=== PATIENT | female | born 1970 | race Caucasian/White ===

== ENCOUNTER → 2017-07-04 | Outpatient (CLI) | payer OTHER ==
[~2017-07-04] MED LIST: CLON0.5T3 PO; FLUO20CA35 PO; LTHSR/300 PO
--- NOTE | 2017-07-05 14:21 | MAMMOGRAPHY REPORT ---
BILATERAL DIGITAL SCREENING MAMMOGRAM TOMOSYNTHESIS WITH CAD: 07/04/2017 CLINICAL HISTORY: Routine screening. Patient has no complaints. TECHNIQUE: Breast tomosynthesis in addition to standard 2D mammography was performed. Current study was also evaluated with a Computer Aided Detection (CAD) system. COMPARISON: Comparison is made to exams dated: 02/19/2010 ultrasound, 02/19/2010 mammogram, and 997 mammogram - [facility]. BREAST COMPOSITION: The tissue of both breasts is heterogeneously dense, which may obscure small mas ses. FINDINGS: There are several groupings of amorphous microcalcifications in the left breast, mostly th roughout the upper outer quadrant, for which additional spot magnification views are recommended. Th ere is an 8 mm oval circumscribed mass in the right upper outer quadrant, and a possible 11 mm mass i n the retroareolar right breast, for which additional targeted ultrasound and possible additional grant mographic views are recommended. No other suspicious mass, architectural distortion or cluster of microcalcifications is seen bilatera lly. IMPRESSION: ACR BI-RADS CATEGORY 0: INCOMPLETE EVALUATION: NEED ADDITIONAL IMAGING EVALUATION The groupings of left breast macrocalcifications and right breast masses need additional imaging eval uation. The patient will be called to schedule an appointment. Approximately 10% of breast cancers are not detected with mammography. A negative mammographic report should not delay biopsy if a clinically suggestive mass is present. Blessing Aldridge M.D. ay/:07/04/2017 18:42:21 Production Machine Operator: Keeley Pinedo, [facility] letter sent: Addl Imaging 0 BI-RADS Code: ACR BI-RADS Category 0: Incomplete Evaluation: Need Additional Imaging Evaluation
== END | disposition home or self-care (01) ==
LOC: C.MAMM 12:40
PROVIDERS: ATTEND Physician Assistant
DX: Z12.31 Encounter for screening mammogram for malignant neoplasm of breast (principal); R92.0 Mammographic microcalcification found on diagnostic imaging of breast; N63 Unspecified lump in breast

== ENCOUNTER → 2017-07-19 | Outpatient (CLI) | payer OTHER ==
--- NOTE | 2017-07-19 15:30 | MAMMOGRAPHY REPORT ---
BILATERAL DIGITAL DIAGNOSTIC MAMMOGRAM TOMOSYNTHESIS AND TARGETED RIGHT ULTRASOUND: 07/19/2017 CLINICAL HISTORY: Callback from screening mammogram for right breast mass, right breast asymmetry, an d left breast calcifications. TECHNIQUE: Breast tomosynthesis in addition to standard 2D mammography was performed. Spot magnific ation left CC and ML and XCCL views and spot compression right CC and MLO 2-D and tomosynthesis image s were obtained. COMPARISON: Comparison is made to exams dated: 07/04/2017 mammogram, 02/19/2010 ultrasound, 02/19/2010 mammogram, and 12/16/1996 mammogram - [facility]. BREAST COMPOSITION: The tissue of both breasts is heterogeneously dense, which may obscure small mas ses. FINDINGS: The previously described asymmetry seen within the right subareolar breast on the cc view only effaces to a baseline appearance on the additional spot compression views, with the tissue in th is region appearing similar to the prior 2010 exam. No suspicious mass, architectural distortion, or other findings are seen in this region on the additional views. Spot magnification views of the left breast demonstrate very faint small clusters and loose groupings of amorphous calcifications in the left breast, in the left medial and superior breast and possibly the lateral breast on the cc view. The calcifications were likely present on the 2010 exam although it is difficult to make an accurate comparison due to differences in mammographic technique. Recomme nd follow-up diagnostic mammograms of the left breast in 6 months to confirm stability on spot magnif ication views. Targeted ultrasound was performed of the right 12:00, 6:00, and subareolar breast in the region of th e mammographic asymmetry seen on one view only. No suspicious masses or other suspicious sonographic abnormalities are evident. Incidentally noted in the right 6:00 periareolar breast is an oval anech oic benign simple cyst measuring 6 x 4 mm. Targeted ultrasound was performed of the right upper oute r quadrant in the region of a circumscribed mammographic mass seen on the screening mammogram. In th e right breast at 9:00, 4 cm from the nipple, there is an oval anechoic circumscribed 7 x 3 x 5 mm ma ss. This corresponds with the circumscribed mammographic mass and is consistent with a benign cyst. IMPRESSION: ACR-BI-RADS CATEGORY 3: PROBABLY BENIGN, TARGETED ULTRASOUND ACR-BI-RADS CATEGORY 3: PRO BABLY BENIGN 1. Faint amorphous loosely grouped/clustered calcifications in the left breast were likely present o n the 2010 exam and are probably benign. Recommend follow-up diagnostic tomosynthesis mammograms of the left breast in 6 months to confirm stability on spot magnification views. 2. Benign 7 mm cyst in the right breast at 9:00 on ultrasound, which corresponds with the new circum scribed mammographic mass. 3. Asymmetry in the right subareolar breast effaces on the additional views, without corresponding s onographic abnormality evident. Findings are benign and compatible with normal fibroglandular tissue . The patient has been verbally notified of the results. Approximately 10% of breast cancers are not detected with mammography. A negative mammographic report should not delay biopsy if a clinically suggestive mass is present. Raquel Babin M.D. ah/:07/19/2017 12:31:06 Leaf Sucker Operator: Keeley Pinedo, [facility] letter sent: Follow Up Recommended 3 BI-RADS Code: ACR-BI-RADS Category 3: Probably Benign Ultrasound BI-RADS: ACR-BI-RADS Category 3: Pr obably Benign
== END | disposition home or self-care (01) ==
LOC: C.MAMM 10:59
PROVIDERS: ATTEND Physician Assistant
DX: N63 Unspecified lump in breast (principal); R92.0 Mammographic microcalcification found on diagnostic imaging of breast; N60.01 Solitary cyst of right breast; N64.89 Other specified disorders of breast

== ENCOUNTER → 2018-01-16 | Outpatient (CLI) | payer OTHER | END | disposition home or self-care (01) | LOC: C.LABSPEC 17:19 | PROVIDERS: ATTEND Urology | DX: R35.0 Frequency of micturition (principal); R39.15 Urgency of urination ==

== ENCOUNTER → 2018-01-16 | Outpatient (CLI) | payer OTHER ==
[~2018-01-16] MED LIST changes: +OPTIRAY 320 IV PRN
--- NOTE | 2018-01-16 13:34 | DIAGNOSTIC IMAGING REPORT ---
ABD/PELVIS COMBO CLINICAL HISTORY: 47 years-old Female presenting with R10.9 Abdominal painR14.0 Abdominal bloatingMILD UPJ OBSTRUCTION. TECHNIQUE: Multidetector CT of the abdomen and pelvis was performed before and after the administration of intravenous contrast. IV contrast: 94 mL of Optiray 320. A dose lowering technique was used consistent with the principles of ALARA (as low as reasonably achievable). COMPARISON: 11/05/2012. CT DOSE (mGy.cm): The estimated cumulative dose is 1262.94 mGycm. FINDINGS: Inspecting And Testing Lead Hand topogram: Unremarkable. Lung bases: Punctate peripheral nodule at the left lower lobe (series 3 image 31). Trace emphysematous changes. Normal heart size. No pericardial or pleural effusion. Liver: Normal morphology. Density consistent with hepatic steatosis. No focal lesion. Patent hepatic vasculature. Biliary: No intrahepatic or extrahepatic biliary ductal dilatation. Normal gallbladder. Pancreas: Normal. Spleen: Normal. Adrenal glands: Normal. Kidneys and ureters: Subcentimeter hypodensity in the left kidney likely stable cyst. Otherwise normal parenchymal enhancement. No nephrolithiasis. No filling defect in the urinary collecting systems to suggest urothelial neoplasm. Allowing for incomplete opacification of the right ureter, the ureters are normal. Bladder: Allowing for incomplete opacification and distention of the urinary bladder, the bladder is normal. Pelvic organs: Uterus surgically absent. No adnexal masses. Normal ovaries. Bowel: Mild stool burden. The appendix is normal. No bowel obstruction. Peritoneal cavity: No free fluid or intraperitoneal gas. Lymph nodes: No enlarged lymph nodes in the abdomen or pelvis. Vasculature: Atherosclerosis of the normal caliber abdominal aorta. IVC patent. Abdominal wall: Normal. Musculoskeletal: Normal. IMPRESSION: 1. Hepatic steatosis. Correlate with liver function tests to exclude steatohepatitis as a cause for abdominal pain.. 2. Trace emphysema. 3. Punctate peripheral solid pulmonary nodule at the left lower lobe. Electronically signed by: Pablo Glasgow M.D. 01/16/2018 1:32 PM Dictated Date/Time: 01/16/2018 1:20 PM
== END | disposition home or self-care (01) ==
LOC: C.CTS 12:39
PROVIDERS: ATTEND Urology
DX: R14.0 Abdominal distension (gaseous) (principal); R10.9 Unspecified abdominal pain; K76.0 Fatty (change of) liver, not elsewhere classified; R91.1 Solitary pulmonary nodule